=== PATIENT | male | born 1980 | race Caucasian/White ===

== ENCOUNTER 2019-07-20 06:20 | Inpatient (IN) ==
[2019-07-20] MEDS ORDERED: MOM Conc 10 ML UD.LIQ PO PRN (06:49)
[2019-07-20] MEDS ORDERED: *HR* LORazepam 2 MG/ML VIAL IM PRN (06:49)
[2019-07-20] MEDS ORDERED: Ibuprofen 400 MG TABLET PO PRN (06:49)
[2019-07-20] MEDS ORDERED: Haloperidol Lactate 5 MG/ML VIAL IM PRN (06:49)
[2019-07-20] MEDS ORDERED: *HR* LORazepam 1 MG TABLET PO PRN (06:49)
[2019-07-20] MEDS ORDERED: Mag Hydrox/Al Hydrox/Simeth 30 ML UDC PO PRN (06:49)
[2019-07-20] MEDS: Nicotine 21 MG PATCH.TD24 TD SCH (10:36)
--- NOTE | 2019-07-20 11:26 | Psychiatry History & Physical ---
Date of Encounter: 07/20/19 Time of Encounter: 11:02 History of Present Illness Patient Stated Chief Complaint: Suicidal ideation Medicare Admission Attestation: For traditional Medicare patients the provided hospital inpatient services are reasonable and necessary and in the case of services not specified as inpatient-only under 42 CFR 419.22 (n), that they are appropriately provided as inpatient services in accordance 42 CFR 412.3. For Critical [facility] Hospital the patient may reasonably be expected to be discharged or transferred to a hospital within 96 hours after admission to the Critical Access Hospital. Admitted From: Emergency Dept Plans for Post Hospital Care: Home History of Present Illness: Mr. Kyle is a 38 year old male who presented from an outside ED with suicidal ideation. He has a PMH of anxiety, depression, substance abuse and possibly Bipolar 2. He follows with a PCP, Dr. Ruth Park in [place] who is managing his care, current home medications include wellbutrin and lamictal which he started a week ago. He states that his anxiety and depression began around November 2017 after his fiance in his arms after suffering from a DVT/PE. He denies a psychiatric or substance use history prior to this event. He denies prior psychiatric hospitalizations. He has tried celexa, buspar, klonipin in the past and was recently started on wellbutrin and lamictal about 1 week ago. He has been off of the klonipin for some time as he was unable to pass a UDS. He denies a history of self harm, SI, or HI. He denies auditory or visual hallucinations but does admit to delusions and paranoia. He admits to using oxycontin, methamphetamine and crack cocaine as well as smokes 2 packs per day. He denies alcohol use. He denies treatment for substance use in the past. He lives alone in a house that his parents own, his parents are his support system. Family history is significant for most likely anxiety in his mother as she is taking ativan and his great grandmother by self inflicted gunshot wound. Yesterday, the patient was in an argument with his parents about his girlfriend and how he wanted to help her. He became agitated and upset that they were not taking him seriously so he went out to his truck, grabbed his handgun, stated "Why don't I just make you all happy?" and placed the gun into his mouth. The police were called and he arrived at an outside ED before being accepted here. At the outside ED his UDS was positive for cocaine. He had a normal chest XR, normal EKG and normal basic labs. He states that he was not actually trying to by suicide, rather he was trying to demonstrate how serious he was about wanting to help his girlfriend. The patient met his girlfriend shortly after his fiance . She immediately moved into his house, introduced him to oxycontin as well as methamphetamine. He states that she moved out and back into her apartment after she came home high and agitated on an unknown substance. During this episode he called his parents for help which is when they began to dislike her and not approve of their relationship. He states that his best friend introduced him to crack cocaine and he last used the cocaine 2 days ago. He states that he is overwhelmed by the situation that his girlfriend is in. He states that she is part of a sex trafficking ring and a sex worker in [place] known as the "Organization" and is run by police, doctors, hide and skin processing worker and business men. He states that the "organization" introduced him to drugs in an effort to keep him from speaking the truth. He states that the police follow him around, that drones are always watching him and that his girlfriend's apartment is wired for video and sound to listen to him. He states that the "organization" intercepts his text messages to his girlfriend and decide which ones she is able to receive. He states that when he visits her at her apartment, a man in his 40's- 50's will sit on her couch and make sure that no one disturbs them. He states that the girlfriend hints to him that the "organization" will hurt or kill her family if she tries to leave. He does admit that she is not locked in apartment and is free to come and go as she pleases but that she has a fake facebook page that she receives her "orders" from that tell her to have sexual intercourse with other men and then reginaldo them. He also states that she receives text messages asking her if she would like to make extra money but she states that these are from her cousin when he has odd jobs for her to do. He states that everybody but him knew that she was a sex worker. He states that his parents are not supportive of his trying to rescue her from this life and that they blame her for his drug use. When he tried to explain about the "organization" they did not take him seriously and may have laughed at him. They refused to help her. They have threatened to kick him out of his house if he does not break up with her, they are the owners of the house. Past Med Surg Social Fam HX - Past Medical History Medical history: no medical history - Past Surgical History Surgical History: no surgical history - Social History Smoking Status: Current every day smoker Smokeless Tobacco Status: No Alcohol use: rarely Drug use: cocaine Medications & Allergies Bupropion HCl ER 150 mg PO DAILY 07/20/19 [History] lamoTRIgine [Subvenite] 25 mg PO DAILY 07/20/19 [History] Allergy/AdvReac Type Severity Reaction Status Date / Time No Known Allergies Allergy Verified 07/20/19 06:39 Review of Systems Constitutional: Denies: fever, chills Eyes: Denies: eye pain, vision change Ears, Nose, Throat: Denies: hearing loss Cardiovascular: Denies: chest pain, palpitations Respiratory: Denies: cough, dyspnea Gastrointestinal: Denies: abdominal pain, vomiting Genitourinary male: Denies: dysuria, hematuria Musculoskeletal: Denies: joint pain Integumentary: Denies: rash, lesions Neurological: Denies: headache, weakness Psychiatric: Reports: depression, anxiety, suicidal ideation, other (paranoia, delusions). Denies: homicidal ideation, visual hallucinations, anhedonia Endocrine: Denies: fatigue Hematologic/Lymphatic: Denies: easy bleeding, easy bruising Allergic/Immunologic: Denies: urticaria Exam - HEENT Head exam IM: Present: atraumatic, normocephalic Eye exam IM: Present: EOMI, normal appearance ENT exam IM: Present: mucous membranes moist - Neurological Neurological exam: Present: CN II-XII intact (grossly), alert - Respiratory Respiratory exam IM: Absent: respiratory distress - GI/Abdominal GI/Abdominal exam IM: Present: no peritoneal signs - Extremities Extremities exam IM: Present: full ROM, normal inspection - Skin Skin exam IM: Present: dry, warm. Absent: rash - Constitutional Vitals: Temp Pulse Resp BP Pulse Ox 97.2 F L 71 18 103/65 97 07/20/19 06:25 07/20/19 06:25 07/20/19 06:25 07/20/19 06:25 07/20/19 06:25 General appearance: age & developmentally appropriate, well-groomed, well- nourished, average - Musculoskeletal Gait: normal Station: relaxed Strength & Tone: normal for patient - Psychiatric Patient Orientation: Yes Person, Yes Time, Yes Place, Yes Circumstance Level of alertness: Alert, Follows commands Behavior: calm, cooperative, suspicious, talkative Psychomotor activity: Normal Eye Contact: Maintains Eye Contact Mood Description: Anxious Affect description: full range Speech Volume: Normal Speech pattern: normal rate, normal rhythm, normal tone, fluent, spontaneous, clear Language & Vocabulary: consistent with education Thought Process: Intact Thought Content: No Suicidal ideation, No Homicidal ideation, Yes Overt delusions, Yes Paranoid delusion Perceptual Disturbances: No Auditory hallucinations, No Visual hallucinations Attention Span Ability: Capable of Focused Attention Memory Description: Grossly Intact Patient Reliability: Reliable Historian Fund of knowledge: Yes average, Yes aware of current events Intelligence Estimate: Average Judgment: Poor Insight: Minimal Assessment and Plan (1) Substance-induced psychotic disorder with delusions Current visit: Yes Status: Acute Plan: Admit inpatient for safety and stabilization, Close observation, Suicide Precautions per unit protocol, Encourage participation in unit milieu, Group Therapy, Monitor sleep, Monitor appetite Additional Plan: Denies a history of psychiatric disorders besides anxiety and depression which began 1.5 years ago after desi . Admits to oxycontin, methamphetamine and crack cocaine use UDS positive for cocaine Will discontinue home medications Begin zyprexa Risks, benefits, side effects, alternatives discussed w/pt: Yes Patient agreeable to treatment: Yes Plans for Post Hospital Care: Home Estimated Length of Stay (Days): 3 - Attending Attestation I examined this patient and my medical decision-making was reviewed with the Resident Physician. I agree with the documented findings, disposition and treatment plan as described except to the extent set forth below. Client has no mental health history beyond some depression and anxiety following the sudden/unexpected of his rené a year and a half ago. However, shortly after her client met a new woman who moved into his home and introduced him to drugs. Client has no history of substance abuse beyond "dabbling in high school" before meeting her. They started with opiates and eventually moved up to daily meth use. Client was recently introduced to cocaine and used this drug most recently. Client has developed a systematized delusional belief system regarding this new woman in his life. He believes she is being "tortured" and that she is part of a sex trafficking ring. He believes there is an "organization" made up of doctors, hide and skin processing worker, law enforcement, etc. that run this sex trafficking ring. He believes there are cameras and drones watching him all of the time. Client now lives alone but has recently been staying with his parents due to his paranoia. Yesterday he tried to convince them of these beliefs. He became frustrated when they would not believe him and he went to his car and grabbed a handgun he owns and put it in his mouth. Today client denies any SI, intent, or plan and states he had no SI yesterday either. Claims he would not have hurt himself and that he was just trying to get his parents to understand. This fiction writer spoke with client's mother and she agreed that client has no real mental health history, has always been happy, and has never presented as suicidal. She believes client grabbed the gun for "dramatic effect" but that the situation was still "terrifying." She called the police when client grabbed the gun and they brought client to the ER. She and her plan to secure the weapon and she and patient were counseled that he should not have access to weapons. Mother agrees that client has never had psychosis before starting on drugs. Most likely diagnosis is Substance Induced Psychosis. Client is not having hallucinations but his delusions are significant. Client is convinced his delusions are real but admits when they first started he doubted himself and wondered if drugs were impacting his thinking. He is open to taking an antipsychotic. Discussed risks, benefits, and side effects of Zyprexa. Client is also willing to be linked with outpatient services. Plans to live with parents after discharge and they are supportive. However, he is already wanting to leave. Agreeable to staying tonight. Hopefully, he will have a quick response since he has never taken antipsychotics before and his current presentation is likely mostly substance induced. Behaviorally he has been cooperative in the hospital and he has evidenced no dangerous behaviors here.
[2019-07-20] MEDS: traZODone 50 MG TABLET PO PRN (21:39)
[2019-07-20] MEDS: hydrOXYzine pamoate 25 MG CAPSULE PO PRN (21:39)
[2019-07-20] MEDS: OLANZapine 10 MG TAB.RAPDIS PO SCH (21:40)
[2019-07-21] MEDS: Nicotine 21 MG PATCH.TD24 TD SCH (13:12)
--- NOTE | 2019-07-21 13:53 | Psychiatry Progress Note ---
Date of Encounter: 07/21/19 Time of Encounter: 13:34 Subjective Interval history: Client reports he is feeling better today. Still has some anxiety but less focused on all of the bad things he believes are happening. Took Zyprexa last night with no side effects. Able to fall asleep quickly and states he got good sleep. PCP called today and client signed a JUANJO for her. She knows client very well and has been involved with the family for years. She verified everything that client and his family have reported. Client was fine until his fiancee suddenly a year and a half ago. He has been going downhill and getting involved with drugs ever since. However, it appears that not everything client is believing is delusional. Staff here were able to verify that there is a legitimate group of high powered individuals that were running a sex trafficking ring in [place], [place]. This is an ongoing investigation. Client's son verified that there are drones over client's house and he saw three of them there yesterday. Chances are client has become involved with legitimately bad people through his drug use but also that the drugs he is using have made him overly paranoid about all of the things going on in his life. Client is willing [facility] which will probably be helpful to him. Also willing to follow up with outpatient AOD treatment. Does not want inpatient treatment as he reports needing to work to meet his financial obligations. Client denies he owes any money for drugs. Client continues to deny SI/HI/AH/VH. Does not appear outwardly psychotic but clearly has some degree of delusional thinking. Behaviors have been fine in the hospital. Client is wanting to leave but agreeable to staying one more night. Review of Systems Constitutional: Denies: fever, chills, weakness, weight change Eyes: Denies: eye pain, vision change Ears, Nose, Throat: Denies: ear pain, throat pain, dental pain, hearing loss, congestion Cardiovascular: Denies: chest pain, palpitations, dyspnea on exertion Respiratory: Denies: cough, dyspnea, wheezes Gastrointestinal: Denies: abdominal pain, nausea, vomiting, diarrhea, constipation Musculoskeletal: Denies: joint swelling, joint pain Neurological: Denies: headache, weakness, numbness, memory loss Psychiatric: Reports: depression, anxiety, suicidal ideation, other (paranoia, delusions). Denies: homicidal ideation, visual hallucinations, anhedonia Results - Vital Signs Vital Signs: Temp Pulse Resp BP Pulse Ox 97.7 F 56 16 109/71 98 07/21/19 09:00 07/21/19 09:00 07/21/19 09:00 07/21/19 09:00 07/21/19 09:00 Assessment and Plan (1) Substance-induced psychotic disorder with delusions Current visit: Yes Status: Acute Plan: Continue hospitalization, Close observation, Suicide Precautions per unit protocol, Encourage participation in unit milieu, Group Therapy, Monitor sleep, Monitor appetite Risks, benefits, side effects, alternatives discussed w/pt: Yes Patient agreeable to treatment: Yes Consult Discharge Plan - Plan Referrals: NONE,PCP [Primary Care Provider] - Psychiatry Exam - Constitutional Vitals: Temp Pulse Resp BP Pulse Ox 97.7 F 56 16 109/71 98 07/21/19 09:00 07/21/19 09:00 07/21/19 09:00 07/21/19 09:00 07/21/19 09:00 General appearance: age & developmentally appropriate, well-groomed, well- nourished - Musculoskeletal Gait: normal Station: relaxed Strength & Tone: normal for patient - Psychiatric Patient Orientation: Yes Person, Yes Time, Yes Place Level of alertness: Alert Behavior: calm, cooperative Psychomotor activity: Normal Eye Contact: Maintains Eye Contact Mood Description: Anxious Affect description: full range Speech Volume: Normal Speech pattern: normal rate, normal rhythm, normal tone, fluent, spontaneous Language & Vocabulary: consistent with education Thought Process: Linear, Goal Oriented Thought Content: No Suicidal ideation, No Homicidal ideation, Yes Overt delusions, Yes Paranoid delusion Perceptual Disturbances: No Auditory hallucinations, No Visual hallucinations Attention Span Ability: Capable of Focused Attention Memory Description: Grossly Intact Patient Reliability: Reliable Historian Fund of knowledge: Yes abstraction ability, Yes aware of current events Intelligence Estimate: Average Judgment: Limited Insight: Partial
[2019-07-21] MEDS: hydrOXYzine pamoate 25 MG CAPSULE PO PRN (20:25)
[2019-07-21] MEDS: OLANZapine 10 MG TAB.RAPDIS PO SCH (20:25)
[2019-07-21] MEDS: traZODone 50 MG TABLET PO PRN (20:25)
[2019-07-22] MEDS: Nicotine 21 MG PATCH.TD24 TD SCH (10:00)
[2019-07-22 10:02] VITALS: BP 115/71
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
== END 2019-07-22 12:00 | disposition home or self-care (01) | DRG 897 ==
LOC: 1ANU 06:20
PROVIDERS: ADMIT Psychiatry & Neurology Psychiatry; ATTEND Psychiatry & Neurology Psychiatry